=== PATIENT | male | born 1960 ===

== ENCOUNTER 2018-01-17 23:01 | Observation (INO) | payer SELFPAY ==
[2018-01-17] MEDS ORDERED: Sodium Chloride 0.9% 1,000 ML IV ONE (23:39)
[2018-01-17] MEDS ORDERED: Aspirin 325 mg EC Tablets PO STA (23:39)
--- NOTE | 2018-01-17 23:50 | C.PDOC ---
History Of Present Illness 57 year old male presents to the ER with a ocmplaint of chest tightness and SOB. Patient is visiting from the [place] where is he being treated for HTN and diabetes, he normally takes beta blockers and metformin, his blood pressure is normally in the 120s systolic. Tonight patient states he was watching TV when he suddenly felt a discomfort in his upper abdomen, felt nauseous, broke out in a sweat, felt SOB and chest tightness. He took his blood pressure and noticed it was 190/100, he states it has never been that high. Patient also report his sugar has not been controlled lately and he has been experiencing some urinary frequency. Patient reports his symptoms have improved on arrival. Denies fever, chills, or vomiting. Time Seen by Provider: 01/17/18 23:24 Chief Complaint (Nursing): High Blood Pressure History Per: Patient History/Exam Limitations: no limitations Onset/Duration Of Symptoms: Hrs Current Symptoms Are (Timing): Better Associated Symptoms: Chest Pain, Dyspnea, Other (Nausea, SOB, Diaphoresis) Exacerbating Factor(s): Pos: None Recent travel outside of the [place]: No Past Medical History Reviewed: Historical Data, Nursing Documentation, Vital Signs Vital Signs: Last Vital Signs Temp 98.1 F 01/17/18 23:14 Pulse 69 01/17/18 23:46 Resp 20 01/17/18 23:14 BP 176/99 H 01/17/18 23:46 Pulse Ox 99 01/18/18 00:03 - Medical History PMH: HTN Family History: States: Unknown Family Hx - Social History Hx Alcohol Use: No Hx Substance Use: No - Immunization History Hx Tetanus Toxoid Vaccination: No Hx Influenza Vaccination: No Hx Pneumococcal Vaccination: No Review Of Systems Constitutional: Positive for: Sweats. Negative for: Fever, Chills Cardiovascular: Positive for: Chest Pain Respiratory: Positive for: Shortness of Breath, Other (Chest tightness) Gastrointestinal: Positive for: Nausea. Negative for: Vomiting Neurological: Negative for: Weakness, Numbness Physical Exam - Physical Exam Appears: Non-toxic Skin: Normal Color, Warm, Dry Head: Atraumatic, Normacephalic Eye(s): bilateral: Normal Inspection Oral Mucosa: Moist Neck: Normal, Supple Chest: Symmetrical, No Tenderness Cardiovascular: Rhythm Regular, Other (175/90) Respiratory: Normal Breath Sounds, No Rales, No Rhonchi, No Wheezing Gastrointestinal/Abdominal: Soft, No Tenderness Back: No CVA Tenderness Extremity: Normal ROM (x4) Neurological/Psych: Oriented x3, Normal Speech ED Course And Treatment - Laboratory Results Result Diagrams: 01/17/18 23:53 01/17/18 23:53 Lab Interpretation: Abnormal (Glucose 224) ECG: Interpreted By Me O2 Sat by Pulse Oximetry: 99 (Room air) Pulse Ox Interpretation: Normal Progress Note: EKG, blood work, urinalysis, and CXR ordered. Catapres, aspirin, and IV fluids administered. Reevaluation Time: 00:41 Reassessment Condition: Improved (Patient no longer c/o chest pain but BP s till 171/101 after Clonidine.) - Physician Consult Information Time Consulting Physician Contacted: 00:42 Physician Contacted: Dilan Dos Santos Outcome Of Conversation: Patient to be kept for chest pain observation. Disposition - Disposition Disposition: HOSPITALIZED Disposition Time: 00:42 Condition: STABLE - POA Present On Arrival: Poor Glycemic Control - Clinical Impression Clinical Impression: Chest pain at rest, Uncontrolled hypertension - Scribe Statement The provider has reviewed the documentation as recorded by the Scribe Lorne Ann All medical record entries made by the Scribe were at my direction and personally dictated by me. I have reviewed the chart and agree that the record accurately reflects my personal performance of the history, physical exam, medical decision making, and the department course for this patient. I have also personally directed, reviewed, and agree with the discharge instructions and disposition.
[2018-01-17] MEDS ORDERED: Sodium Chloride 0.9% 1,000 ML ONE (23:56)
[2018-01-17] MEDS ORDERED: Aspirin 325 mg EC Tablets PO ONE (23:56)
[2018-01-17 23:59] LABS: URINE BILIRUBIN NEGATIVE (NEGATIVE); URINE BLOOD NEGATIVE (NEGATIVE); URINE CLARITY Clear (Clear); URINE COLOR Straw (YELLOW); URINE GLUCOSE (UA) 2+ mg/dL (Normal); URINE LEUKOCYTE ESTERASE NEG Leu/uL (Negative); URINE PROTEIN NEGATIVE (NEGATIVE); URINE UROBILINOGEN NORMAL mg/dL (0.2-1.0)
[2018-01-18] LABS: BASO % 0.7 % (0.0-2.0); EOS # 0.1 K/uL (0.0-0.7); EOS % 1.7 % (0.0-4.0); HEMOGLOBIN 13.7 g/dL (12.0-18.0); LYMPH # 1.7 K/uL (1.0-4.3); LYMPH % 29.9 % (20.0-40.0); MEAN CELL VOLUME 83.3 fL (80.0-94.0); MEAN CORPUSCULAR HEMOGLOBIN 27.8 pg (27.0-31.0); MEAN CORPUSCULAR HGB CONC 33.4 g/dL (33.0-37.0); MEAN PLATELET VOLUME 10.3 fL (7.2-11.7); MONO # 0.4 K/uL (0.0-0.8); MONO % 7.2 % (0.0-10.0); NEUT # 3.5 K/uL (1.8-7.0); NEUT % 60.5 % (50.0-75.0); RBC 4.94 Mil/uL (4.40-5.90); RED CELL DISTRIBUTION WIDTH 14.2 % (11.5-14.5); WHITE BLOOD COUNT 5.8 K/uL (4.8-10.8)
[2018-01-18 00:21] LABS: ALB/GLOB RATIO 1.8 (1.0-2.1); ALBUMIN 4.8 g/dL (3.5-5.0); ALT/SGPT 45 U/L (21-72); AST/SGOT 32 U/L (17-59); BLOOD UREA NITROGEN 17 mg/dL (9-20); CALCIUM 9.6 mg/dl (8.6-10.4); GFR AFRICAN-AMERICAN > 60; GFR NON-AFRICAN AMERICAN > 60
--- NOTE | 2018-01-18 02:16 | CP.PCM.PN ---
Subjective - Date & Time of Evaluation Date of Evaluation: 01/18/18 Time of Evaluation: 02:12 - Subjective Subjective: Assessment * Atypical cp, epigastric, then cp, nausea, resolved in ER, normal EKG, no chest wall tenderness. * Uncontrolled HTN unclear if form fluctuation vs chronic * DM hyperglycemia * 1st deg heart block form bystolic Plan * Repeat enzymes, * Tele obv * Hgba1c * Home meds to continue. * See orders for detail. Objective - Vital Signs/Intake and Output Vital Signs (last 24 hours): Temp Pulse Resp BP Pulse Ox 98.1 F 69 20 176/99 H 99 01/17/18 23:14 01/17/18 23:46 01/17/18 23:14 01/17/18 23:46 01/18/18 00:43 - Labs Labs: 01/17/18 23:53 01/17/18 23:53
--- NOTE | 2018-01-18 02:37 | CP.PCM.HP ---
Addendum entered and electronically signed by Herson Swann 01/18/18 04:54: Addition to A/P: * EKG: NSR with no ST changes Original Note: <Herson Swann - Last Filed: 01/18/18 03:13> History of Present Illness - History of Present Illness History of Present Illness: CC: Chest tightness and SOB HPI: Patient is a 57 year old male with past medical history of HTN and DM, who presents to the ED with complaint of left chest tightness and tongue numbness around 8:30pm after dinner, therefore, patient checked his BP at home which was 191/107. Patient noted associated symptoms of epigastric discomfort, nausea , diaphoresis and blurry vision. Patient reports that back in [facility] , his blood pressure and blood glucose is very well controlled and he has never had this type of symptoms before. Patient is currently visiting from [facility] since January 09. Patient denies any other symptoms such as headache, fever, chills, vomiting, recent sickness, diarrhea, numbness/tingling or any other symptoms. Code Status: Full code PMD: None PMHx: HTN and DM PSHx: Denies FHx: * Mother: DM and HTN, alive * Father: Circulation Dz and [place] at 87, Medications: Glimepirida- Metformin 4mg-850mg PO QD, Nabudol 5mg PO QD Allergies: NKDA Social Hx: Visiting family in the [place]. Denies any former or current tobacco, ETOH and illicit drugs Present on Admission - Present on Admission Any Indicators Present on Admission: No Review of Systems - Constitutional Constitutional: absent: Chills, Fever, Headache, Increased Appetite, Weakness - EENT Eyes: Blurred Vision. absent: Change in Vision Ears: Dizziness - Cardiovascular Cardiovascular: Chest Pain, Chest Pain at Rest, Dyspnea, Lightheadedness, Palpitations. absent: Diaphoresis, Leg Ulcers, Orthopnea - Respiratory Respiratory: Dyspnea - Gastrointestinal Gastrointestinal: Nausea. absent: Abdominal Pain, Vomiting - Musculoskeletal Musculoskeletal: absent: Limited Range of Motion, Numbness, Tingling - Neurological Neurological: Dizziness. absent: Disequilibrium, Numbness, Headaches, Tingling , Weakness - Endocrine Endocrine: Palpitations. absent: Fatigue Past Patient History - Infectious Disease Hx of Infectious Diseases: None - Past Social History Smoking Status: Never Smoked - CARDIAC Hx Hypertension: Yes - ENDOCRINE/METABOLIC Hx Diabetes Mellitus Type 1: Yes - PSYCHIATRIC Hx Substance Use: No - SURGICAL HISTORY Hx Surgeries: No - ANESTHESIA Hx Anesthesia: No Meds Allergies/Adverse Reactions: Allergies Allergy/AdvReac Type Severity Reaction Status Date / Time No Known Allergies Allergy Verified 01/17/18 23:18 Physical Exam - Constitutional Appears: No Acute Distress - Head Exam Head Exam: ATRAUMATIC, NORMAL INSPECTION - Eye Exam Eye Exam: EOMI, Normal appearance, PERRL - ENT Exam ENT Exam: Mucous Membranes Moist - Respiratory Exam Respiratory Exam: Clear to Auscultation Bilateral, NORMAL BREATHING PATTERN. absent: Prolonged Expiratory Phase, Rhonchi, Wheezes, Respiratory Distress - Cardiovascular Exam Cardiovascular Exam: REGULAR RHYTHM, +S1, +S2. absent: Systolic Murmur - GI/Abdominal Exam GI & Abdominal Exam: Normal Bowel Sounds, Soft. absent: Distended, Firm, Guarding, Tenderness - Extremities Exam Extremities exam: Positive for: normal inspection. Negative for: calf tenderness, joint swelling, pedal edema - Back Exam Back exam: NORMAL INSPECTION. absent: CVA tenderness (L), CVA tenderness (R) - Neurological Exam Neurological exam: Alert, Oriented x3 - Psychiatric Exam Psychiatric exam: Normal Affect, Normal Mood - Skin Skin Exam: Normal Color Results - Vital Signs Recent Vital Signs: Last Vital Signs Temp 98.1 F 01/17/18 23:14 Pulse 69 01/17/18 23:46 Resp 20 01/17/18 23:14 BP 176/99 H 01/17/18 23:46 Pulse Ox 99 01/18/18 00:43 - Labs Result Diagrams: 01/17/18 23:53 01/17/18 23:53 Labs: Laboratory Results - last 24 hr 01/17/18 01/17/18 01/17/18 23:19 23:53 23:53 WBC 5.8 RBC 4.94 Hgb 13.7 Hct 41.1 MCV 83.3 MCH 27.8 MCHC 33.4 RDW 14.2 Plt Count 183 MPV 10.3 Neut % (Auto) 60.5 Lymph % (Auto) 29.9 [place] % (Auto) 7.2 Eos % (Auto) 1.7 Baso % (Auto) 0.7 Neut # (Auto) 3.5 Lymph # (Auto) 1.7 [place] # (Auto) 0.4 Eos # (Auto) 0.1 Baso # (Auto) 0.0 Sodium Potassium Chloride Carbon Dioxide Anion Gap BUN Creatinine Est GFR ( Amer) Est GFR (Non-Af Amer) POC Glucose (mg/dL) 233 H Random Glucose Calcium Total Bilirubin AST ALT Alkaline Phosphatase Troponin I Total Protein Albumin Globulin Albumin/Globulin Ratio Urine Color Straw Urine Clarity Clear Urine pH 7.0 Ur Specific [place] 1.008 Urine Protein Negative Urine Glucose (UA) 2+ H Urine Ketones Negative Urine Blood Negative Urine Nitrate Negative Urine Bilirubin Negative Urine Urobilinogen Normal Ur Leukocyte Esterase Neg Urine RBC (Auto) < 1 01/17/18 23:53 WBC RBC Hgb Hct MCV MCH MCHC RDW Plt Count MPV Neut % (Auto) Lymph % (Auto) [place] % (Auto) Eos % (Auto) Baso % (Auto) Neut # (Auto) Lymph # (Auto) [place] # (Auto) Eos # (Auto) Baso # (Auto) Sodium 138 Potassium 4.5 Chloride 99 Carbon Dioxide 29 Anion Gap 16 BUN 17 Creatinine 0.8 Est GFR ( Amer) > 60 Est GFR (Non-Af Amer) > 60 POC Glucose (mg/dL) Random Glucose 224 H Calcium 9.6 Total Bilirubin 0.4 AST 32 ALT 45 Alkaline Phosphatase 75 Troponin I < 0.0120 Total Protein 7.5 Albumin 4.8 Globulin 2.7 Albumin/Globulin Ratio 1.8 Urine Color Urine Clarity Urine pH Ur Specific [place] Urine Protein Urine Glucose (UA) Urine Ketones Urine Blood Urine Nitrate Urine Bilirubin Urine Urobilinogen Ur Leukocyte Esterase Urine RBC (Auto) Assessment & Plan (1) Chest pain at rest Assessment and Plan: Resolved EKG: Troponin negative X1, F/u DON x2 F/u lipid panel, HgbA1C, TSH and Free T4 Medication: * ASA 81mg PO daily Status: Acute (2) Uncontrolled hypertension Assessment and Plan: On admission: * BP: 190/101 * Clonidine 0.1mg PO Once in the ED * Continue home medication: Bystolic 5mg PO QD * Vital signs Q4H * Will continue to monitor and reevaluate for medical adjustment Status: Acute (3) History of diabetes mellitus Assessment and Plan: Accuchecks Continue home medication: Glimiperide-Metformin 4mg-850mg PO daily Status: Acute (4) Prophylactic measure Assessment and Plan: GI: Not indicated DVT: SCDs Heart healthy diet All plans and management discussed with Dr. Dos Santos Status: Acute <Dilan Dos Santos P - Last Filed: 01/19/18 08:00> Results - Vital Signs Recent Vital Signs: Last Vital Signs Temp 97.6 F 01/18/18 07:10 Pulse 63 01/18/18 07:40 Resp 18 01/18/18 07:10 BP 125/79 01/18/18 07:10 Pulse Ox 99 01/18/18 07:10 - Labs Result Diagrams: 01/18/18 06:21 01/18/18 06:21 Labs: Laboratory Results - last 24 hr 01/18/18 01/18/18 01/18/18 06:21 06:21 06:21 POC Glucose (mg/dL) Hemoglobin A1c 8.7 H Total Creatine Kinase 108 CK-MB (Mass) 0.47 Troponin I < 0.0120 Free T4 0.87 01/18/18 01/18/18 11:17 12:00 POC Glucose (mg/dL) 191 H Hemoglobin A1c Total Creatine Kinase 102 CK-MB (Mass) 0.38 Troponin I < 0.0120 Free T4 Attending/Attestation - Attestation I have personally seen and examined this patient.: Yes I have fully participated in the care of the patient.: Yes I have reviewed all pertinent clinical information: Yes Notes (Text): See note on the same day
[2018-01-18 06:35] LABS: BASO % 0.4 % (0.0-2.0); EOS # 0.1 K/uL (0.0-0.7); EOS % 1.2 % (0.0-4.0); HEMOGLOBIN 13.5 g/dL (12.0-18.0); LYMPH # 2.4 K/uL (1.0-4.3); MEAN CELL VOLUME 82.9 fL (80.0-94.0); MEAN CORPUSCULAR HEMOGLOBIN 27.8 pg (27.0-31.0); MEAN CORPUSCULAR HGB CONC 33.5 g/dL (33.0-37.0); MEAN PLATELET VOLUME 10.4 fL (7.2-11.7); MONO # 0.5 K/uL (0.0-0.8); MONO % 7.3 % (0.0-10.0); NEUT # 4.2 K/uL (1.8-7.0); NEUT % 58.1 % (50.0-75.0); NRBC % 0.1 % (0.0-2.0); RBC 4.86 Mil/uL (4.40-5.90); RED CELL DISTRIBUTION WIDTH 14.2 % (11.5-14.5); WHITE BLOOD COUNT 7.2 K/uL (4.8-10.8)
[2018-01-18 07:37] LABS: ALB/GLOB RATIO 1.7 (1.0-2.1); ALBUMIN 4.3 g/dL (3.5-5.0); ALT/SGPT 45 U/L (21-72); AST/SGOT 31 U/L (17-59); BLOOD UREA NITROGEN 13 mg/dL (9-20); GFR AFRICAN-AMERICAN > 60; GFR NON-AFRICAN AMERICAN > 60
--- NOTE | 2018-01-18 08:06 | RAD ---
Date of service: 01/18/2018 PROCEDURE: CHEST RADIOGRAPH, 1 VIEW HISTORY: chest pain COMPARISON: None available. FINDINGS: LUNGS: Shallow lung volumes. No consolidation. PLEURA: No pneumothorax or pleural fluid seen. CARDIOVASCULAR: Mild cardiomegaly. Unfolded/ prominent ectatic thoracic aorta. Mild pulmonary venous congestion OSSEOUS STRUCTURES: No significant abnormalities. VISUALIZED UPPER ABDOMEN: Normal. OTHER FINDINGS: None. IMPRESSION: Mild pulmonary venous congestion. Mild cardiomegaly -compatible with mild CHF. Ascending aorta prominent -can be seen with hypertension - correlate clinically. Comparison with prior studies advised.
[2018-01-18 08:08] VITALS: BP 125/79; RESP 18; TEMP 97.6; O2SAT 99
[2018-01-18 08:39] LABS: CK-MB 0.47 ng/mL (0.0-3.38)
[2018-01-18 10:15] VITALS: PULSE 63
--- NOTE | 2018-01-18 12:16 | CP.PCM.DIS ---
Provider - Provider Date of Admission: 01/18/18 00:43 Attending physician: Dilan Dos Santos MD Primary care physician: none Consults: none Time Spent in preparation of Discharge (in minutes): 45 Diagnosis - Discharge Diagnosis (1) Hypertensive urgency Status: Resolved Priority: High (2) T2DM (type 2 diabetes mellitus) Status: Chronic Priority: Medium Hospital Course - Lab Results Lab Results: Most Recent Lab Values WBC 7.2 K/uL (4.8-10.8) 01/18/18 06:21 RBC 4.86 Mil/uL (4.40-5.90) 01/18/18 06:21 Hgb 13.5 g/dL (12.0-18.0) 01/18/18 06:21 Hct 40.3 % (35.0-51.0) 01/18/18 06:21 MCV 82.9 fL (80.0-94.0) 01/18/18 06:21 MCH 27.8 pg (27.0-31.0) 01/18/18 06:21 MCHC 33.5 g/dL (33.0-37.0) 01/18/18 06:21 RDW 14.2 % (11.5-14.5) 01/18/18 06:21 Plt Count 175 K/uL (130-400) 01/18/18 06:21 MPV 10.4 fL (7.2-11.7) 01/18/18 06:21 Neut % (Auto) 58.1 % (50.0-75.0) 01/18/18 06:21 Lymph % (Auto) 33.0 % (20.0-40.0) 01/18/18 06:21 [place] % (Auto) 7.3 % (0.0-10.0) 01/18/18 06:21 Eos % (Auto) 1.2 % (0.0-4.0) 01/18/18 06:21 Baso % (Auto) 0.4 % (0.0-2.0) 01/18/18 06:21 Neut # (Auto) 4.2 K/uL (1.8-7.0) 01/18/18 06:21 Lymph # (Auto) 2.4 K/uL (1.0-4.3) 01/18/18 06:21 [place] # (Auto) 0.5 K/uL (0.0-0.8) 01/18/18 06:21 Eos # (Auto) 0.1 K/uL (0.0-0.7) 01/18/18 06:21 Baso # (Auto) 0.0 K/uL (0.0-0.2) 01/18/18 06:21 Sodium 140 mmol/L (132-148) 01/18/18 06:21 Potassium 3.9 mmol/L (3.6-5.2) 01/18/18 06:21 Chloride 102 mmol/L (98-107) 01/18/18 06:21 Carbon Dioxide 25 mmol/L (22-30) 01/18/18 06:21 Anion Gap 17 (10-20) 01/18/18 06:21 BUN 13 mg/dL (9-20) 01/18/18 06:21 Creatinine 0.7 mg/dL (0.8-1.5) L 01/18/18 06:21 Est GFR ( Amer) > 60 01/18/18 06:21 Est GFR (Non-Af Amer) > 60 01/18/18 06:21 POC Glucose (mg/dL) 169 mg/dL (65-110) H 01/18/18 06:20 Random Glucose 168 mg/dL (75-110) H 01/18/18 06:21 Hemoglobin A1c 8.7 % (4.2-6.5) H 01/18/18 06:21 Calcium 9.0 mg/dl (8.6-10.4) 01/18/18 06:21 Total Bilirubin 0.5 mg/dL (0.2-1.3) 01/18/18 06:21 AST 31 U/L (17-59) 01/18/18 06:21 ALT 45 U/L (21-72) 01/18/18 06:21 Alkaline Phosphatase 66 U/L (38-126) 01/18/18 06:21 Total Creatine Kinase 108 U/L (55-170) 01/18/18 06:21 CK-MB (Mass) 0.47 ng/mL (0.0-3.38) 01/18/18 06:21 Troponin I < 0.0120 ng/mL (0.00-0.120) 01/18/18 06:21 Total Protein 6.8 g/dL (6.3-8.3) 01/18/18 06:21 Albumin 4.3 g/dL (3.5-5.0) 01/18/18 06:21 Globulin 2.5 gm/dL (2.2-3.9) 01/18/18 06:21 Albumin/Globulin Ratio 1.7 (1.0-2.1) 01/18/18 06:21 Triglycerides 220 mg/dL (0-149) H 01/18/18 06:21 Cholesterol 168 mg/dL (0-199) 01/18/18 06:21 LDL Cholesterol Direct 76 mg/dL (0-129) 01/18/18 06:21 HDL Cholesterol 24 mg/dL (30-70) L 01/18/18 06:21 Free T4 0.87 ng/dL (0.78-2.19) 01/18/18 06:21 TSH 3rd Generation 2.16 mIU/L (0.46-4.68) 01/18/18 06:21 Urine Color Straw (YELLOW) 01/17/18 23:53 Urine Clarity Clear (Clear) 01/17/18 23:53 Urine pH 7.0 (5.0-8.0) 01/17/18 23:53 Ur Specific [place] 1.008 (1.003-1.030) 01/17/18 23:53 Urine Protein Negative mg/dL (NEGATIVE) 01/17/18 23:53 Urine Glucose (UA) 2+ mg/dL (Normal) H 01/17/18 23:53 Urine Ketones Negative mg/dL (NEGATIVE) 01/17/18 23:53 Urine Blood Negative (NEGATIVE) 01/17/18 23:53 Urine Nitrate Negative (NEGATIVE) 01/17/18 23:53 Urine Bilirubin Negative (NEGATIVE) 01/17/18 23:53 Urine Urobilinogen Normal mg/dL (0.2-1.0) 01/17/18 23:53 Ur Leukocyte Esterase Neg [place]/uL (Negative) 01/17/18 23:53 Urine RBC (Auto) < 1 /hpf (0-3) 01/17/18 23:53 - Hospital Course Hospital Course: Patient is a 57 year old male with past medical history of HTN and DM, who presents to the ED with complaint of left chest tightness and tongue numbness around 8:30pm after dinner, therefore, patient checked his BP at home which was 191/107. Patient noted associated symptoms of epigastric discomfort, nausea , diaphoresis and blurry vision. Patient reports that back in [facility] , his blood pressure and blood glucose is very well controlled and he has never had this type of symptoms before. Patient is currently visiting from [facility] since January 09. Patient denies any other symptoms such as headache, fever, chills, vomiting, recent sickness, diarrhea, numbness/tingling or any other symptoms. Upon admission, the patient's BP was 190/101. He admitted to not taking his medications for the past 2 weeks. Due to chest pain, VA was ruled out with negative troponins x3 and EKGs. Patient was restarted on his home medications, including Bystolic for HTN. The patient's HTN and symptoms resolved. He was able to walk without CP, blurred vision, or dizziness. Additionally, his blood glucose was fairly well controlled with Accuchecks ranging from 168-233). Upon discharge, the patient was asymptomatic. BP on discharge was 125/79. He was given prescriptions for his medications, and the importance of taking them was stressed. He will establish care at the resident clinic as an outpatient. Discharge Exam - Head Exam Head Exam: ATRAUMATIC, NORMAL INSPECTION, NORMOCEPHALIC - Eye Exam Eye Exam: EOMI, Normal appearance - ENT Exam ENT Exam: Mucous Membranes Moist, Normal Exam - Neck Exam Neck exam: Full Rom, Normal Inspection - Respiratory Exam Respiratory Exam: Clear to PA & Lateral, NORMAL BREATHING PATTERN - Cardiovascular Exam Cardiovascular Exam: REGULAR RHYTHM, +S1, +S2 - GI/Abdominal Exam GI & Abdominal Exam: Normal Bowel Sounds, Soft, Unremarkable - Rectal Exam Rectal Exam: Deferred - Extremities Exam Extremities exam: full ROM, normal inspection - Back Exam Back exam: NORMAL INSPECTION - Neurological Exam Neurological exam: Alert, CN II-XII Intact, Normal Gait, Oriented x3 - Psychiatric Exam Psychiatric exam: Normal Affect, Normal Mood - Skin Skin Exam: Dry, Intact, Normal Color, Warm Discharge Plan - Discharge Medications Prescriptions: Aspirin [Ecotrin] 81 mg PO DAILY #30 tabec Glimepiride [Amaryl] 4 mg PO DAILY #30 tablet metFORMIN [glucOPHAGE] 850 mg PO DAILY #30 tab Nebivolol [Bystolic] 5 mg PO DAILY #30 tab - Follow Up Plan Condition: IMPROVED Disposition: HOME/ ROUTINE Patient education suggested?: Yes Instructions: Nebivolol, Heart Healthy Diet, Diabetes Exchange Diet, DASH Diet , High Blood Pressure (DC), Carbohydrate Counting Diet, Diabetes Diet , Aspirin , Glimepiride, Metformin Additional Instructions: Patient is cleared for discharge as per Dr. Douglas Luther. He is to resume all home medications (aspirin, Bystolic, metformin, and glimepiride). He is being provided with prescriptions. The importance of taking his medications regularly , without skipping doses, was explained to the patient. He is to establish care with a primary care provider at the resident clinic at [facility] ([phone]) within one week of discharge. If symptoms recur or worsen, patient was instructed to return to the ED. Patient acknowledged understanding and agreed. El paciente est autorizado para el leo segn el Dr. Douglas Luther. l debe reanudar todos los medicamentos en el hogar (aspirina, Bystolic, metformin y glimepiride). l est recibiendo recetas. La importancia de hugo clyde medicamentos con regularidad, sin omitir dosis, se le explic al paciente. l debe establecer la atencin con un proveedor de atencin primaria en la clnica para resident[facility] de [facility] ([phone]) dentro de beka semana de matti sido dado de leo. Si los sntomas reaparecen o empeoran, el paciente recibi instrucciones de regresar al servicio de urgencias. El paciente reconoci la comprensin y estuvo de acuerdo. Referrals: Lisa Keith MD [Staff Provider] -
[2018-01-18 12:34] LABS: CK-MB 0.38 ng/mL (0.0-3.38)
== END 2018-01-18 14:20 | disposition home or self-care (01) ==
LOC: C.ER 23:01 → C.9E 01-18 00:43 → C.6T 01-18 00:43
PROVIDERS: ADMIT Internal Medicine; ATTEND Internal Medicine
DX: I16.0 Hypertensive urgency (principal); E10.9 Type 1 diabetes mellitus without complications; Z79.4 Long term (current) use of insulin; Z82.49 Family history of ischemic heart disease and other diseases of the circulatory system; Z83.3 Family history of diabetes mellitus
CPT/HCPCS: 36415; 71045; 80053; 80061; 81001; 82948; 83036; 84439; 84443; 84484; 85025; 96360; G0378; J7030